=== PATIENT | male | born 1985 | race African-American/Black ===

== ENCOUNTER 2018-10-27 18:14 | Emergency (ER) | payer SELFPAY ==
[~2018-10-27] VITALS: Ht 172.7 cm; Wt 81.0 kg
[2018-10-27] MEDS ORDERED: PREDNISONE 20MG TABLET PO STA (18:33)
[2018-10-27] MEDS ORDERED: IPRATROPIUM BROMIDE (0.02%) 0.5MG/2.5ML NEB HHN STA (18:33)
[2018-10-27] MEDS ORDERED: ALBUTEROL (0.083%) 2.5MG/3ML NEB HHN STA (18:33)
[2018-10-27 21:11] VITALS: BP 109/72
== END 2018-10-27 20:45 | disposition home or self-care (01) ==
LOC: ER 18:14
DX: J45.901 Unspecified asthma with (acute) exacerbation (principal)
CPT/HCPCS: 99283; J7512; J7611